=== PATIENT | male | born 1970 | race African-American/Black ===

== ENCOUNTER 2018-12-21 21:43 | Emergency (ER) | payer MEDICARE, OTHER ==
[2018-12-22] MEDS: KETOROLAC 30 MG INJ IV (01:00)
== END 2018-12-22 01:14 | disposition home or self-care (01) ==
LOC: E/R 21:43
DX: G89.4 Chronic pain syndrome (principal); I10 Essential (primary) hypertension; Z21 Asymptomatic human immunodeficiency virus [HIV] infection status
CPT/HCPCS: 93005; 96374; 99284-25